=== PATIENT | female | born 1995 | race Caucasian/White ===

== ENCOUNTER 2017-12-31 23:31 | Emergency (ER) | payer BC ==
--- NOTE | 2018-01-01 00:10 | ED ---
General Adult HPI - General Source: patient, RN notes reviewed, old records reviewed Mode of arrival: EMS Limitations: no limitations <Brando Breaux - Last Filed: 01/01/18 07:22> <Ra Flores - Last Filed: 01/01/18 10:08> - General Chief complaint: Psychiatric Symptoms Stated complaint: Suicidal Time Seen by Provider: 12/31/17 23:34 - History of Present Illness Initial comments: This is a 22-year-old female the ER for evaluation. This patient does say for evaluation regards to suicidal attempt. Patient is is suicidal and intoxicated. Patient has multiple lacerations secondary to self-inflicted knife clots, patient has never cut herself before, she has multiple cuts throughout her wrist and hamstrings and shins (Brando Breaux) - Related Data Previous Rx's Medication Instructions Recorded Cephalexin [Keflex] 500 mg PO QID #28 cap 01/01/18 Allergies Allergy/AdvReac Type Severity Reaction Status Date / Time No Known Allergies Allergy Verified 01/01/18 04:08 Review of Systems ROS Other: All systems not noted in ROS Statement are negative. <Brando Breaux - Last Filed: 01/01/18 07:22> ROS Other: All systems not noted in ROS Statement are negative. <Ra Flores - Last Filed: 01/01/18 10:08> ROS Statement: Those systems with pertinent positive or pertinent negative responses have been documented in the HPI. Past Medical History History of Any Multi-Drug Resistant Organisms: None Reported Additional Past Surgical History / Comment(s): patient denies Past Psychological History: Anxiety Smoking Status: Never smoker Past Alcohol Use History: Occasional Past Drug Use History: None Reported <Brando Breaux - Last Filed: 01/01/18 07:22> General Exam Limitations: no limitations General appearance: alert, appears intoxicated, anxious Head exam: Present: atraumatic, normocephalic, normal inspection Eye exam: Present: normal appearance, PERRL, EOMI. Absent: scleral icterus, conjunctival injection, periorbital swelling ENT exam: Present: normal exam, mucous membranes moist Neck exam: Present: normal inspection. Absent: tenderness, meningismus, lymphadenopathy Respiratory exam: Present: normal lung sounds bilaterally. Absent: respiratory distress, wheezes, rales, rhonchi, stridor Cardiovascular Exam: Present: regular rate, normal rhythm, normal heart sounds. Absent: systolic murmur, diastolic murmur, rubs, gallop, clicks GI/Abdominal exam: Present: soft, normal bowel sounds. Absent: distended, tenderness, guarding, rebound, rigid Extremities exam: Present: normal inspection, full ROM, normal capillary refill , other (Patient has multiple lacerations superficial throughout both legs). Absent: tenderness, pedal edema, joint swelling, calf tenderness Back exam: Present: normal inspection Neurological exam: Present: alert, oriented X3, CN II-XII intact Psychiatric exam: Present: normal affect, normal mood Skin exam: Present: warm, dry, intact, normal color. Absent: rash <Brando Breaux - Last Filed: 01/01/18 07:22> Vital Signs 12/31/17 01/01/18 01/01/18 23:37 02:15 07:10 Temperature 98.1 F 97.0 F L Pulse Rate 110 H 68 81 Respiratory 20 19 19 Rate Blood Pressure 136/72 127/57 115/66 O2 Sat by Pulse 97 100 99 Oximetry Procedures - Laceration Laceration #1 Consent Obtained: verbal consent Time Out Performed: Yes Indication: laceration Site: lower extremity Description: linear (multiple) Depth: simple, single layer (steri strips) Size of Sutures: other (steri strips) Technique: other (superficial, steri strips) Complications: pain Patient Tolerated Procedure: well <Brando Breaux - Last Filed: 01/01/18 07:22> Medical Decision Making <Brando Breaux - Last Filed: 01/01/18 07:22> <Ra Flores - Last Filed: 01/01/18 10:08> - Medical Decision Making Patient was seen by mental health services who does recommend discharge and did set patient up for appointment at 5:30 today. Patient reevaluated. Patient denies suicidal ideation and does contract for safety. does have multiple superficial leg abrasions. Patient states she was to receive antibiotics for this. (Ra Flores) - Lab Data Lab Results 12/31/17 Range/Units 23:49 Urine Opiates Screen Not Detected (NotDetected) Ur Oxycodone Screen Not Detected (NotDetected) Urine Methadone Screen Not Detected (NotDetected) Ur Propoxyphene Screen Not Detected (NotDetected) Ur Barbiturates Screen Not Detected (NotDetected) U Tricyclic Antidepress Not Detected (NotDetected) Ur Phencyclidine Scrn Not Detected (NotDetected) Ur Amphetamines Screen Not Detected (NotDetected) U Methamphetamines Scrn Not Detected (NotDetected) U Benzodiazepines Scrn Not Detected (NotDetected) Urine Cocaine Screen Not Detected (NotDetected) U Marijuana (THC) Screen Not Detected (NotDetected) Disposition <Brando Breaux - Last Filed: 01/01/18 07:22> Is patient prescribed a controlled substance at d/c from ED?: No Time of Disposition: 10:07 <Ra Flores - Last Filed: 01/01/18 10:08> Clinical Impression: Depression, Abrasion of leg Disposition: HOME SELF-CARE Condition: Stable Instructions: Abrasion (ED), Depression (ED), Suicide Prevention for Adults (ED ) Additional Instructions: Discontinue alcohol use. Apply antibiotic ointment to leg abrasions twice daily for the next week. Please follow-up today as directed. Please also follow-up with primary care physician in the next day or 2 for recheck. Return for thoughts of self-harm, worsening symptoms, redness or pain to the legs, or other concerns. Prescriptions: Cephalexin [Keflex] 500 mg PO QID #28 cap Referrals: Mariza Peres MD [STAFF PHYSICIAN] - 1-2 days
[2018-01-01] MEDS ORDERED: TOPICAL SKIN ADHESIVE 1 EACH AMP TOPICAL ONE (04:09)
[2018-01-01 04:54] LABS: Amphetamine Screen,Urine Not Detected (NotDetected); Barbiturate Screen,Urine Not Detected (NotDetected); Benzodiazepines Screen,Urine Not Detected (NotDetected); Cocaine Screen,Urine Not Detected (NotDetected); Methadone Screen, Urine Not Detected (NotDetected); Opiate Screen,Urine Not Detected (NotDetected); Oxycodone Screen, Urine Not Detected (NotDetected); Phencyclidine Screen,Urine Not Detected (NotDetected); Tricyclic Antidepressant,Urine Not Detected (NotDetected); Urn Cannabinoid Scrn Not Detected (NotDetected)
[2018-01-01] MEDS ORDERED: ACETAMINOPHEN TAB 325 MG TAB PO STA (09:53)
[2018-01-01 10:21] VITALS: BP 121/65; PULSE 82; RESP 16; TEMP 97.4
--- NOTE | 2018-01-03 05:46 | CDI ---
Dear Ra Flores DO: Please do addendum length of the laceration. Thank you, Jitendra Martinez, Director Client Services. If you have any questions, please contact Planning Engineer at [phone]. Please note: Laceration documentation was done by Dr. Emmanuel. Please forward this to him. [facility]
--- NOTE | 2018-01-08 00:36 | CDI ---
Dear Brando Breaux DO: Please do addendum length of the laceration. Thank you, Jitendra Martinez, Fine [employer]elry Sales Associate. If you have any questions, please contact Research Physicist at [phone]. [facility]
== END 2018-01-01 10:18 | disposition home or self-care (01) ==
LOC: EC 23:31
DX: S81.812A Laceration without foreign body, left lower leg, initial encounter (principal); S81.811A Laceration without foreign body, right lower leg, initial encounter; F32.9 Major depressive disorder, single episode, unspecified; X78.1XXA Intentional self-harm by knife, initial encounter
CPT/HCPCS: 80306; 82075; 99285